=== PATIENT | female | born 1995 | race Caucasian/White ===

== ENCOUNTER 2016-09-04 15:39 | Emergency (ER) | payer OTHER ==
[~2016-09-04] VITALS: Ht 167.6 cm; Wt 69.3 kg
[2016-09-04 15:39] VITALS: TEMP 36.7; Ht 167.6 cm; Wt 69.3 kg
[2016-09-04 16:51] VITALS: O2SAT 96
[2016-09-04 16:56] LABS: BUN/CREATININE RATIO 16.2 (10-20); CALCIUM 8.8 mg/dl (8.5-10.1); CREATININE 0.77 mg/dl (0.60-1.20); POTASSIUM 3.8 mmol/L (3.5-5.1)
[2016-09-04] MEDS ORDERED: LORAZEPAM 2 MG/ML 1 ML VIAL ONE (17:00)
[2016-09-04] MEDS ORDERED: HALOPERIDOL LACTATE 5 MG/ML 1 ML VIAL ONE (17:49)
--- NOTE | 2016-09-04 18:22 | EMERGENCY ROOM VISIT NOTE ---
History Report prepared by Jean Claudeiblalo: Corrine Hills Under the Supervision of: Dr. Alli Bonner D.O. First contact with patient: 15:41 Chief Complaint: ALCOHOL OVERDOSE Stated Complaint: ETOH History of Present Illness The patient is a 21 year old female who presents to the Emergency Room with complaints of alcohol overdose occurring today. The patient reports hitting her face on a door. She does not have any medical problems. HPI is limited secondary to alcohol intoxication. Source of History: patient History Limited By: intoxication Onset: today Position: other (global) Quality: other (alcohol overdose) Review of Systems ROS is limited secondary to alcohol intoxication. Past Medical & Surgical Medical Problems: (1) No Known Active Medical Problems Family History Patient reports no known family medical history. Social History Alcohol Use: occasionally Occupation Status: student Current/Historical Medications No Active Prescriptions or Reported Meds Physical Exam Vital Signs Date Time Temp Pulse Resp B/P Pulse Ox O2 Delivery O2 Flow Rate FiO2 09/04/16 21:02 86 18 93/63 97 Room Air 09/04/16 21:00 87 09/04/16 19:58 84 16 117/75 98 Room Air 09/04/16 19:01 93 18 112/73 95 Room Air 09/04/16 17:54 126 18 134/92 92 Room Air 09/04/16 17:39 144 25 09/04/16 17:29 127/98 09/04/16 17:09 123 17 09/04/16 17:07 64 09/04/16 17:00 150/91 09/04/16 16:58 137 09/04/16 16:51 96 Room Air 09/04/16 16:50 133/73 09/04/16 16:29 /65 09/04/16 16:09 112 11 09/04/16 15:59 113/85 09/04/16 15:47 115/87 09/04/16 15:39 36.7 113 22 115/87 96 Room Air 09/04/16 15:39 96 Room Air Physical Exam CONSTITUTIONAL/VITAL SIGNS: Reviewed / noted above. GENERAL: Non-toxic in appearance. She is tearful. Slightly slurred speech. INTEGUMENTARY: Warm, dry, and [place]. HEAD: Normocephalic. EYES: without scleral icterus or trauma. Bilateral conjunctival injection. ENT/OROPHARYNX: clear and moist. LYMPHADENOPATHY/NECK: Is supple without lymphadenopathy or meningismus. RESPIRATORY: Lungs clear and equal. CARDIOVASCULAR: Regular rate and rhythm. GI/ABDOMEN: Soft and nontender. No organomegaly or pulsatile mass. No rebound or guarding. Normal bowel sounds. EXTREMITIES: Warm and well perfused. BACK: No CVA tenderness. NEUROLOGICAL: Intact without focal deficits. PSYCHIATRIC: normal affect. MUSCULOSKELETAL: Normally developed with good muscle tone. Medical Decision & Procedures Laboratory Results 09/04/16 15:56 Test 09/04/16 15:56 Anion Gap 11.0 mmol/L (3-11) Est Creatinine Clear Calc Drug Dose 109.0 ml/min Estimated GFR () 128.8 Estimated GFR (Non- 111.1 BUN/Creatinine Ratio 16.2 (10-20) Calcium Level 8.8 mg/dl (8.5-10.1) Ethyl Alcohol mg/dL 238.0 mg/dl (0-3) Laboratory results as stated above per my review. Medications Administered Medications (Trade) Dose Ordered Sig/Angelo Route Start Time Stop Time Status Last Admin Dose Admin Lorazepam (Ativan Inj) 2 mg STK-MED ONCE .ROUTE 09/04/16 17:00 09/04/16 17:03 DC 09/04/16 17:09 2 MG Haloperidol Lactate (Haldol Inj) 5 mg STK-MED ONCE .ROUTE 09/04/16 17:49 09/04/16 17:51 DC 09/04/16 17:49 5 MG ED Course 1541: Previous medical records were reviewed. The patient was evaluated in room A11A. A complete history and physical examination was performed. 1630: The patient is screaming and crying. 1700: Ativan Inj 2 mg IM 1749: Haldol Inj 5 mg IM 1828: I reevaluated the patient who is resting comfortably. 2223: On reevaluation, the patient is doing well. I discussed the results and findings with the patient. She verbalized agreement of the treatment plan. She was discharged home. Medical Decision There is no evidence of other toxic ingestions, trauma, anemia, hypoglycemia, head injury or intracranial pathology, meningitis, encephalitis, acute intrathoracic or abdominal pathology or other metabolic condition. This is a 21-year-old female who presents to the ED with a chief complaint of alcohol intoxication. The patient was brought in and denies any medical problems. The patient is not cooperative although she does answer questions appropriately. She is aggressive towards staff and not cooperating. She reports being that she bumped the right side of her face on a door but denies significant injury. The patient is continuously asking for her phone. She was actually given her phone at one point because she stated she wanted to call her mother. She then threw her phone at the security. The patient needed to be restrained because of her agitation. She was restrained initially with soft restraints and then given Ativan and Haldol IM. The patient remained in an aspiration precaution position during his ED stay. The patient remained on the monitor without ectopy. Pulse ox was never shown any evidence of hypoxia. Blood pressure never showed significant hypotension. The mental status improved and the patient was awake alert and oriented and was felt stable for discharge. Impression Primary Impression: Alcohol use with intoxication Scribe Attestation The scribe's documentation has been prepared under my direction and personally reviewed by me in its entirety. I confirm that the note above accurately reflects all work, treatment, procedures, and medical decision making performed by me. Departure Information Dispostion Home / Self-Care Prescriptions No Active Prescriptions or Reported Meds Forms HOME CARE DOCUMENTATION FORM, IMPORTANT VISIT INFORMATION Patient Instructions ED Alcohol Intoxication, [facility]: [employer] Students and Alcohol Related Visits, My [facility] Additional Instructions Avoid alcohol use. Return for any concerns.
[2016-09-04 23:58] VITALS: BP 112/58; PULSE 78; O2SAT 98
== END 2016-09-04 23:59 | disposition home or self-care (01) ==
LOC: C.EDA 15:41
DX: F10.929 Alcohol use, unspecified with intoxication, unspecified (principal)

== ENCOUNTER 2016-12-17 21:28 | Emergency (ER) | payer OTHER ==
[~2016-12-17] VITALS: Ht 165.1 cm; Wt 70.3 kg
[2016-12-17 21:34] VITALS: TEMP 36.8; O2SAT 98; Ht 165.1 cm; Wt 70.3 kg
[2016-12-17] MEDS ORDERED: ONDANSETRON INJ 2 MG/ML 2 ML VIAL IV STA (21:52)
[2016-12-17] MEDS ORDERED: SODIUM CHLORIDE 0.9% 1000ML 1,000 ML IV STA (21:52)
[2016-12-17] MEDS ORDERED: DICYCLOMINE HCL 10 MG/ML 2 ML AMP IM ONE (22:00)
[2016-12-17 22:31] VITALS: O2SAT 96
[2016-12-17 22:33] LABS: BASO % 0.3 %; BASO ABS # 0.02 K/uL (0-0.2); COMPLETE YES; EOS % 0.4 %; HEMATOCRIT 42.1 % (37-47); IG% 0.1 %; LYMPH ABS # 1.92 K/uL (1.2-3.4); MEAN CELL VOLUME 89.4 fL (80-100); MEAN CORPUSCULAR HEMOGLOBIN 30.1 pg (25-34); MEAN CORPUSCULAR HGB CONC 33.7 g/dl (32-36); MEAN PLATELET VOLUME 10.8 fL (7.4-10.4); MONO % 8.8 %; NEUT % 66.4 %; PLATELET COUNT 248 K/uL (130-400); RED BLOOD COUNT 4.71 M/uL (4.2-5.4)
[2016-12-17 22:52] LABS: BUN/CREATININE RATIO 19.6 (10-20); CALCIUM 8.5 mg/dl (8.5-10.1); CREATININE 0.66 mg/dl (0.60-1.20); POTASSIUM 3.8 mmol/L (3.5-5.1)
[2016-12-17 22:52] LABS: URINE APPEARANCE CLEAR (CLEAR); URINE BILIRUBIN NEG (NEG); URINE COLOR YELLOW; URINE NITRITE NEG (NEG); URINE PH 6.5 (4.5-7.5); URINE SPECIFIC GRAVITY 1.026 (1.000-1.030); UROBILINOGEN NEG (NEG); ZZUR CULT IF INDIC CLEAN CATCH NO
[2016-12-17 22:53] LABS: PREG INTERNAL NEGATIVE QC NEG CLEAR BACKGROUND; PREG INTERNAL POSITIVE QC POS CONTROL LINE
[2016-12-17 22:54] LABS: MANUAL MICROSCOPIC REQUIRED? NO; REVIEW REQ? NO
[2016-12-17] MEDS ORDERED: BENTYL HOME PACK 10 MG VIAL PO ONE (23:15)
[2016-12-17] MEDS ORDERED: ONDANSETRON HOME PACK 4MG OD TAB PO ONE (23:15)
[2016-12-17 23:16] VITALS: BP 120/80; PULSE 90
--- NOTE | 2016-12-17 23:21 | EMERGENCY ROOM VISIT NOTE ---
History First contact with patient: 21:38 Chief Complaint: ABDOMINAL PAIN Stated Complaint: NAUSEA, RT SIDE ABDOMINAL PAIN, CHILLS, CRAMPS Nursing Triage Summary: pt reports RLQ abdominal pain X 3 days with nausea. decreased po intake. reports + urinary sx + burning pain and freq. with urination History of Present Illness The patient is a 21 year old female who presents to the Emergency Room with complaints of nausea and abdominal cramping for the past few days that has been intermittent for quite some time. Patient states her mother has a history of IBS. No history of inflammatory bowel disease. No Crohn's. No ulcerative colitis. Patient denies chest pain, dyspnea, fever, chills, vomiting, diarrhea , back pain, vaginal itching or discharge. No other concerns per patient. She is tolerate by mouth fluids and food. Review of Systems See HPI for pertinent positives & negatives. A total of 10 systems reviewed and were otherwise negative. Past Medical/Surgical History Medical Problems: (1) No Known Active Medical Problems Family History Patient reports no known family medical history. Social History Smoking Status: Current Every Day Smoker Alcohol Use: occasionally Drug Use: marijuana Occupation Status: employed Current/Historical Medications No Active Prescriptions or Reported Meds Allergies Coded Allergies: No Known Allergies (Unverified , 12/17/16) Physical Exam Vital Signs Date Time Temp Pulse Resp B/P (MAP) Pulse Ox O2 Delivery O2 Flow Rate FiO2 12/17/16 22:43 73 12/17/16 22:32 72 14 127/78 Room Air 12/17/16 22:31 96 Room Air 12/17/16 21:34 36.8 104 18 135/91 98 Room Air Physical Exam VITALS: Vitals are noted on the nurse's note and reviewed by myself. Vital signs stable. GENERAL: Pleasant female, in no acute distress, nondiaphoretic, well-developed well-nourished. SKIN: The skin was without rashes, erythema, edema, or bruising. There is no tenting of the skin. Capillary reflex less than 2 seconds. HEAD: Normocephalic atraumatic. EARS: External auditory canals clear, tympanic membranes pearly rodriguez without erythema or effusion bilaterally. EYES: Pupils equal round and reactive to light and accommodation. Conjunctivae without injection, sclerae without icterus. Extraocular movements intact. NOSE: Patent, turbinates without inflammation or discharge. MOUTH: Mucous membranes moist. Pharynx without erythema or exudate. Uvula midline. Airway patent. Tongue does not deviate. NECK: Supple without nuchal rigidity. No lymphadenopathy. No thyromegaly. Cervical spine is nontender. No JVD. HEART: Regular rate and rhythm without murmurs gallops or rubs. LUNGS: Clear to auscultation bilaterally without wheezes, rales or rhonchi. No dullness to percussion. No retractions or accessory muscle use. ABDOMEN: Positive bowel sounds x 4. Normal tympanic percussion. Soft, nontender, without masses or organomegaly. [place] sign negative. No guarding or rebound tenderness. No CVA tenderness MUSCULOSKELETAL: No muscle atrophy, erythema, or edema noted. NEURO: Patient was alert and oriented to person place and time. Normal sensation to light and sharp touch. No focal neurological deficits. Medical Decision & Procedures Laboratory Results 12/17/16 22:20 Red Blood Count 4.71, Mean Corpuscular Volume 89.4, Mean Corpuscular Hemoglobin 30.1, Mean Corpuscular Hemoglobin Concent 33.7, Mean Platelet Volume 10.8, Neutrophils (%) (Auto) 66.4, Lymphocytes (%) (Auto) 24.0, Monocytes (%) (Auto) 8.8, Eosinophils (%) (Auto) 0.4, Basophils (%) (Auto) 0.3, Neutrophils # (Auto) 5.32, Lymphocytes # (Auto) 1.92, Monocytes # (Auto) 0.70, Eosinophils # (Auto) 0.03, Basophils # (Auto) 0.02 12/17/16 22:20 Test 12/17/16 22:20 12/17/16 22:35 White Blood Count 8.00 K/uL (4.8-10.8) Red Blood Count 4.71 M/uL (4.2-5.4) Hemoglobin 14.2 g/dL (12.0-16.0) Hematocrit 42.1 % (37-47) Mean Corpuscular Volume 89.4 fL (80-100) Mean Corpuscular Hemoglobin 30.1 pg (25-34) Mean Corpuscular Hemoglobin Concent 33.7 g/dl (32-36) Platelet Count 248 K/uL (130-400) Mean Platelet Volume 10.8 fL (7.4-10.4) Neutrophils (%) (Auto) 66.4 % Lymphocytes (%) (Auto) 24.0 % Monocytes (%) (Auto) 8.8 % Eosinophils (%) (Auto) 0.4 % Basophils (%) (Auto) 0.3 % Neutrophils # (Auto) 5.32 K/uL (1.4-6.5) Lymphocytes # (Auto) 1.92 K/uL (1.2-3.4) Monocytes # (Auto) 0.70 K/uL (0.11-0.59) Eosinophils # (Auto) 0.03 K/uL (0-0.5) Basophils # (Auto) 0.02 K/uL (0-0.2) RDW Standard Deviation 39.4 fL (36.4-46.3) RDW Coefficient of Variation 12.0 % (11.5-14.5) Immature Granulocyte % (Auto) 0.1 % Immature Granulocyte # (Auto) 0.01 K/uL (0.00-0.02) Anion Gap 10.0 mmol/L (3-11) Est Creatinine Clear Calc Drug Dose 133.8 ml/min Estimated GFR () 147.4 Estimated GFR (Non- 127.2 BUN/Creatinine Ratio 19.6 (10-20) Calcium Level 8.5 mg/dl (8.5-10.1) Total Bilirubin 0.5 mg/dl (0.2-1) Direct Bilirubin 0.2 mg/dl (0-0.2) Aspartate Amino Transf (AST/SGOT) 13 U/L (15-37) Alanine Aminotransferase (ALT/SGPT) 22 U/L (12-78) Alkaline Phosphatase 52 U/L (45-117) Total Protein 7.4 gm/dl (6.4-8.2) Albumin 4.3 gm/dl (3.4-5.0) Lipase 109 U/L (73-393) Human Chorionic Gonadotropin, Qual NEG (NEG) Urine Color YELLOW Urine Appearance CLEAR (CLEAR) Urine pH 6.5 (4.5-7.5) Urine Specific [place] 1.026 (1.000-1.030) Urine Protein NEG (NEG) Urine Glucose (UA) NEG (NEG) Urine Ketones NEG (NEG) Urine Occult Blood NEG (NEG) Urine Nitrite NEG (NEG) Urine Bilirubin NEG (NEG) Urine Urobilinogen NEG (NEG) Urine Leukocyte Esterase NEG (NEG) Medications Administered Medications (Trade) Dose Ordered Sig/Angelo Route Start Time Stop Time Status Last Admin Dose Admin Dicyclomine HCl (Bentyl Inj) 20 mg NOW ONCE IM 12/17/16 22:00 12/17/16 22:01 DC 12/17/16 22:23 20 MG Ondansetron HCl (Zofran Inj) 4 mg NOW STAT IV 12/17/16 21:52 12/17/16 21:53 DC 12/17/16 22:26 4 MG Sodium Chloride 1,000 ml @ 999 mls/hr Q1H1M STAT IV 12/17/16 21:52 12/17/16 22:52 DC 12/17/16 22:28 999 MLS/HR ED Course Prior records/ancillary studies reviewed. Triage Nursing notes reviewed. Additional history obtained from friend. The patient's history was concerning for abdominal pain. Differential diagnosis: Etiologies such as appendicitis, diverticulitis, PUD, biliary pathology, UTI, pancreatitis, obstruction, mesenteric ischemia, aortic pathology, infections, inflammatory bowel disease, renal colic, as well as others were entertained. Physical examination findings: As above. ER treatment provided: Bentyl, Zofran, IV fluids On reassessment the patient felt better. Diagnostics interpreted by me: The labs revealed no worrisome leukocytosis or electrolyte abnormality. Negative urine. Negative hCG Exam and history seem consistent with abdominal cramping most likely from IBS. Patient did not have acute abdomen on exam. She tolerated by mouth fluids and food. She felt much better and requested to leave. She is advised to take medications as directed and to follow-up family care in a few days or here in the ER sooner for abdominal pain, fevers, vomiting, worsening signs or symptoms or as needed. By the evaluation outlined above emergent etiologies such as appendicitis, diverticulitis, PUD, biliary pathology, UTI, pancreatitis, obstruction, mesenteric ischemia, aortic pathology, infections, inflammatory bowel disease, renal colic, as well as others were deemed relatively unlikely. The pt informed about the findings as listed above. All questions were answered and pleased with the treatment. Return instructions were outlined and the patient was discharged in stable condition. Outpatient prescription management: Bentyl, Zofran Referral: The patient was referred back to their primary care physician for follow-up in 2 to 3 days for a recheck of the current condition. Case reviewed with my attending Medical Decision As above Impression Primary Impression: Abdominal cramping Additional Impression: Nausea Departure Information Dispostion Home / Self-Care Condition GOOD Prescriptions No Active Prescriptions or Reported Meds Referrals No Doctor, Assigned (PCP) Patient Instructions My [facility] Additional Instructions Bentyl 10 m tablet every 8 hours as needed for abdominal cramping. Zofran 4 m tablet every 6 hours as needed for nausea and/or vomiting. Rest and drink plenty of fluids as tolerated. Continue current medications. Avoid strenuous activities and anything that worsens your pain. Resume normal activities once your symptoms resolve. Return to the ER immediately for abdominal pain, vomiting, fevers, chest pains , difficulty breathing, worsening of your condition, or as needed. Follow up with your primary physician in 2-3 days for a recheck of your current condition. Problem Qualifiers
[2016-12-17] MEDS ORDERED: ONDA4TAB10 SL (23:22)
[2016-12-17] MEDS ORDERED: DICY10CA55 PO (23:22)
== END 2016-12-17 23:39 | disposition home or self-care (01) ==
LOC: C.EDB 21:31 → C.EDC 23:39
DX: R10.9 Unspecified abdominal pain (principal); R11.0 Nausea; F17.200 Nicotine dependence, unspecified, uncomplicated

== ENCOUNTER → 2016-12-17 | Outpatient (CLI) | payer OTHER ==
[~2016-12-17] MED LIST: DICY10CA55 PO; ONDA4TAB10 SL
[2016-12-20 15:43] LABS: CHLAMYDIA TRACH RNA*** NOT DETECTED (NOT DETECTED); GC (NEIS GONORRHOEAE)RNA** NOT DETECTED (NOT DETECTED)
== END | disposition home or self-care (01) ==
LOC: C.LABSPEC 16:17
PROVIDERS: ATTEND Physician Assistant
DX: Z01.419 Encounter for gynecological examination (general) (routine) without abnormal findings (principal)

== ENCOUNTER → 2016-12-17 | Outpatient (CLI) | payer OTHER ==
[2016-12-17 14:48] LABS: PREG INTERNAL NEGATIVE QC NEG CLEAR BACKGROUND; PREG INTERNAL POSITIVE QC POS CONTROL LINE
[2016-12-18 01:03] LABS: RAPID PLASMA REAGIN NONREACTIVE (NONREACT)
== END | disposition home or self-care (01) ==
LOC: C.LAB1850 12:23
PROVIDERS: ATTEND Physician Assistant
DX: Z72.51 High risk heterosexual behavior (principal); Z01.419 Encounter for gynecological examination (general) (routine) without abnormal findings

== ENCOUNTER → 2016-12-17 | Outpatient (CLI) | payer OTHER ==
[2016-12-17 18:22] LABS: URINE APPEARANCE TURBID (CLEAR); URINE BILIRUBIN NEG (NEG); URINE COLOR DK YELLOW; URINE EPITHELIAL CELL AUTO >30 /lpf (0-5); URINE NITRITE NEG (NEG); URINE PH 5.5 (4.5-7.5); URINE SPECIFIC GRAVITY 1.033 (1.000-1.030); UROBILINOGEN NEG (NEG)
[2016-12-17 18:28] LABS: MANUAL MICROSCOPIC REQUIRED? NO; REVIEW REQ? YES
== END | disposition home or self-care (01) ==
LOC: C.LABSPEC 17:25
PROVIDERS: ATTEND Physician Assistant
DX: R39.9 Unspecified symptoms and signs involving the genitourinary system (principal)

== ENCOUNTER 2016-12-22 18:43 | Emergency (ER) | payer OTHER ==
[~2016-12-22] VITALS: Ht 165.1 cm; Wt 69.4 kg
[2016-12-22 18:56] VITALS: TEMP 37; Ht 165.1 cm; Wt 69.4 kg
[2016-12-22] MEDS ORDERED: SODIUM CHLORIDE 0.9% 1000ML 1,000 ML IV STA (20:20)
[2016-12-22] MEDS ORDERED: ONDANSETRON INJ 2 MG/ML 2 ML VIAL IV STA (20:20)
[2016-12-22] MEDS ORDERED: KETOROLAC TROMETHAMINE 30 MG/ML VIAL IV STA (20:20)
--- NOTE | 2016-12-22 20:35 | EMERGENCY ROOM VISIT NOTE ---
History Report prepared by Adeline: Cristo Puente Under the Supervision of: Dr. Cynthia Harden M.D. First contact with patient: 20:12 Chief Complaint: CONSTIPATION Stated Complaint: UNABLE TO GO TO THE BATHROOM, EXCRUCIATING PAIN History of Present Illness The patient is a 21 year old female who presents to the Emergency Room with complaints of constant, worsening, periumbilical, abdominal pain beginning a week ago. She currently rates her discomfort a 5/10 in severity. The patient states that she has not been able to pass stool for the past 8 days. She reports that she was in the ER 5 days ago and was diagnosed with IBS. The patient notes that she was give Zofran and Bentyl for her symptoms, but they are not helping. She states that she is not able to urinate without getting nauseous, and this morning she had projective vomit that consisted of only water. The patient denies fevers, changes in her appetite, and the chance of being . She notes that she is currently on her menstrual cycle, and it is a little glass washer than normal. The patient states that she just moved her and does not have a PCP. Source of History: patient Onset: a week ago Position: abdomen (periumbilical) Symptom Intensity: 5/10 Timing: constant, worsening Associated Symptoms: + nausea, + vomiting, No fevers Note: The patient denies changes in her appetite, and the chance of being . Review of Systems See HPI for pertinent positives & negatives. A total of 10 systems reviewed and were otherwise negative. Past Medical & Surgical Medical Problems: (1) No Known Active Medical Problems Family History Patient reports no known family medical history. Social History Smoking Status: Current Every Day Smoker Alcohol Use: occasionally Drug Use: marijuana Occupation Status: employed Current/Historical Medications Scheduled Dicyclomine Hcl (Bentyl), 10 MG PO Q8 Ondasetron Odt (Zofran Odt), 4 MG SL Q6H Allergies Coded Allergies: No Known Allergies (Unverified , 12/22/16) Physical Exam Vital Signs Date Time Temp Pulse Resp B/P (MAP) Pulse Ox O2 Delivery O2 Flow Rate FiO2 12/22/16 23:23 69 18 123/81 98 Room Air 12/22/16 22:46 98 16 103/64 98 Room Air 12/22/16 21:05 70 16 120/81 Room Air 12/22/16 20:16 98 127/71 98 Room Air 12/22/16 18:56 37.0 93 18 117/84 95 Room Air Physical Exam Vital signs reviewed. General: Well-appearing 21 year old female, in no significant distress. HEENT: No scleral icterus, PERRLA, neck supple. Atraumatic. Cardiovascular: Regular rate and rhythm, no extra sounds. Pulmonary: Clear to auscultation bilaterally, normal work of breathing. Abdomen: Soft, nontender, nondistended, positive bowel sounds. Musculoskeletal: Atraumatic, no peripheral edema. Neurologic: Patient awake alert and oriented x 3 Skin: Warm, dry, no rash Medical Decision & Procedures ER Provider Diagnostic Interpretation: X-ray results as stated below per interpretation by me: Abdomen X-ray series: No pneumothorax, lungs are clear, no free air under the diaphragm, no evidence of obstruction, moderate amounts of fecal retention Laboratory Results 12/22/16 20:55 Red Blood Count 4.62, Mean Corpuscular Volume 90.7, Mean Corpuscular Hemoglobin 31.8, Mean Corpuscular Hemoglobin Concent 35.1, Mean Platelet Volume 11.7, Neutrophils (%) (Auto) 75.2, Lymphocytes (%) (Auto) 17.6, Monocytes (%) (Auto) 6.5, Eosinophils (%) (Auto) 0.3, Basophils (%) (Auto) 0.2, Neutrophils # (Auto) 6.78, Lymphocytes # (Auto) 1.59, Monocytes # (Auto) 0.59, Eosinophils # (Auto) 0.03, Basophils # (Auto) 0.02 12/22/16 20:55 Test 12/22/16 20:55 White Blood Count 9.03 K/uL (4.8-10.8) Red Blood Count 4.62 M/uL (4.2-5.4) Hemoglobin 14.7 g/dL (12.0-16.0) Hematocrit 41.9 % (37-47) Mean Corpuscular Volume 90.7 fL (80-100) Mean Corpuscular Hemoglobin 31.8 pg (25-34) Mean Corpuscular Hemoglobin Concent 35.1 g/dl (32-36) Platelet Count 233 K/uL (130-400) Mean Platelet Volume 11.7 fL (7.4-10.4) Neutrophils (%) (Auto) 75.2 % Lymphocytes (%) (Auto) 17.6 % Monocytes (%) (Auto) 6.5 % Eosinophils (%) (Auto) 0.3 % Basophils (%) (Auto) 0.2 % Neutrophils # (Auto) 6.78 K/uL (1.4-6.5) Lymphocytes # (Auto) 1.59 K/uL (1.2-3.4) Monocytes # (Auto) 0.59 K/uL (0.11-0.59) Eosinophils # (Auto) 0.03 K/uL (0-0.5) Basophils # (Auto) 0.02 K/uL (0-0.2) RDW Standard Deviation 40.9 fL (36.4-46.3) RDW Coefficient of Variation 12.3 % (11.5-14.5) Immature Granulocyte % (Auto) 0.2 % Immature Granulocyte # (Auto) 0.02 K/uL (0.00-0.02) Urine Color DK YELLOW Urine Appearance CLEAR (CLEAR) Urine pH 6.5 (4.5-7.5) Urine Specific [place] 1.023 (1.000-1.030) Urine Protein NEG (NEG) Urine Glucose (UA) NEG (NEG) Urine Ketones NEG (NEG) Urine Occult Blood TRACE (NEG) Urine Nitrite NEG (NEG) Urine Bilirubin NEG (NEG) Urine Urobilinogen NEG (NEG) Urine Leukocyte Esterase NEG (NEG) Urine WBC (Auto) 1-5 /hpf (0-5) Urine RBC (Auto) 0-4 /hpf (0-4) Urine Hyaline Casts (Auto) 1-5 /lpf (0-5) Urine Epithelial Cells (Auto) >30 /lpf (0-5) Urine Bacteria (Auto) NEG (NEG) Anion Gap 8.0 mmol/L (3-11) Est Creatinine Clear Calc Drug Dose 111.1 ml/min Estimated GFR () 124.9 Estimated GFR (Non- 107.8 BUN/Creatinine Ratio 14.7 (10-20) Calcium Level 9.1 mg/dl (8.5-10.1) Total Bilirubin 0.3 mg/dl (0.2-1) Direct Bilirubin 0.1 mg/dl (0-0.2) Aspartate Amino Transf (AST/SGOT) 18 U/L (15-37) Alanine Aminotransferase (ALT/SGPT) 24 U/L (12-78) Alkaline Phosphatase 49 U/L (45-117) Total Protein 7.3 gm/dl (6.4-8.2) Albumin 4.1 gm/dl (3.4-5.0) Human Chorionic Gonadotropin, Qual NEG (NEG) Laboratory results per my review. Medications Administered Medications (Trade) Dose Ordered Sig/Angelo Route Start Time Stop Time Status Last Admin Dose Admin Sodium Chloride 1,000 ml @ 999 mls/hr Q1H1M STAT IV 12/22/16 20:20 12/22/16 21:20 DC 12/22/16 21:05 999 MLS/HR Ketorolac Tromethamine (Toradol Inj) 30 mg NOW STAT IV 12/22/16 20:20 12/22/16 20:23 DC 12/22/16 21:04 30 MG Ondansetron HCl (Zofran Inj) 4 mg NOW STAT IV 12/22/16 20:20 12/22/16 20:23 DC 12/22/16 21:04 4 MG Bisacodyl (Dulcolax Supp) 10 mg NOW STAT OR 12/22/16 23:11 12/22/16 23:12 DC 12/22/16 23:20 10 MG Magnesium Citrate (Citrate Of Magnesia Soln) 150 ml NOW STAT PO 12/22/16 23:11 12/22/16 23:12 DC 12/22/16 23:20 150 ML ED Course 2019: Past medical records reviewed. The patient was evaluated in room B11B. A complete history and physical examination was performed. 2020: Ordered Zofran Inj 4mg IV, Toradol Inj 30mg IV, Sodium Chloride 1000 ml @ 999 mls/hr IV 2311: Ordered Magnesium Citrate 150ml, Bisacodyl 10mg OR 2319: Upon reevaluation, the patient appeared to have improvement of her symptoms. I discussed findings with her. She verbalized agreement of the treatment plan. The patient was discharged home. Medical Decision Differential diagnosis: Etiologies such as appendicitis, diverticulitis, PUD, biliary pathology, UTI, pancreatitis, obstruction, mesenteric ischemia, aortic pathology, infections, inflammatory bowel disease, renal colic, as well as others were entertained. Medication Reconciliation: I attest that I have personally reviewed the patient' s current medication list. Blood Pressure Screening: Patient was found to have normal blood pressure on screening and does not require follow-up. This pt was evaluated and appeared to be in no distress. IV access was obtained and lab work was drawn. Pt was hydrated with NSS, given IV toradol and zofran. Lab work reveals no significant abnl. Abd XR series is negative for SBO or FA. There is increased fecal load c/w pt's complaints. She was given a dulcolax supp pr and mag citrate po. Pt was informed of the findings and agrees with the plan. She will f/u with PCP this week and return to the ED for worsening of symptoms or any medical concerns. Impression Primary Impression: Constipation Scribe Attestation The scribe's documentation has been prepared under my direction and personally reviewed by me in its entirety. I confirm that the note above accurately reflects all work, treatment, procedures, and medical decision making performed by me. Departure Information Dispostion Home / Self-Care Referrals No Doctor, Assigned (PCP) Forms HOME CARE DOCUMENTATION FORM, IMPORTANT VISIT INFORMATION Patient Instructions Constipation, My [facility] Additional Instructions Diagnosis: Constipation Miralax 1 capful every 6 hours until you have a BM, then daily for constipation. Increase the fiber and water in your diet. Follow up with your doctor for reevaluation MYNOR. Return to emergency for worsening of symptoms or any medical concerns.
[2016-12-22 21:43] LABS: BASO % 0.2 %; BASO ABS # 0.02 K/uL (0-0.2); COMPLETE YES; EOS % 0.3 %; HEMATOCRIT 41.9 % (37-47); IG% 0.2 %; LYMPH % 17.6 %; LYMPH ABS # 1.59 K/uL (1.2-3.4); MEAN CELL VOLUME 90.7 fL (80-100); MEAN CORPUSCULAR HEMOGLOBIN 31.8 pg (25-34); MEAN CORPUSCULAR HGB CONC 35.1 g/dl (32-36); MEAN PLATELET VOLUME 11.7 fL (7.4-10.4); MONO % 6.5 %; NEUT % 75.2 %; PLATELET COUNT 233 K/uL (130-400); RED BLOOD COUNT 4.62 M/uL (4.2-5.4); WHITE BLOOD COUNT 9.03 K/uL (4.8-10.8)
[2016-12-22 21:51] LABS: URINE APPEARANCE CLEAR (CLEAR); URINE BILIRUBIN NEG (NEG); URINE COLOR DK YELLOW; URINE EPITHELIAL CELL AUTO >30 /lpf (0-5); URINE NITRITE NEG (NEG); URINE PH 6.5 (4.5-7.5); URINE SPECIFIC GRAVITY 1.023 (1.000-1.030); UROBILINOGEN NEG (NEG); ZZUR CULT IF INDIC CLEAN CATCH NO
[2016-12-22 21:53] LABS: MANUAL MICROSCOPIC REQUIRED? NO; REVIEW REQ? NO
[2016-12-22 22:02] LABS: BUN/CREATININE RATIO 14.7 (10-20); CREATININE 0.79 mg/dl (0.60-1.20); POTASSIUM 3.5 mmol/L (3.5-5.1)
[2016-12-22 22:04] LABS: PREG INTERNAL NEGATIVE QC NEG CLEAR BACKGROUND; PREG INTERNAL POSITIVE QC POS CONTROL LINE
[2016-12-22 22:15] LABS: CALCIUM 9.1 mg/dl (8.5-10.1)
[2016-12-22] MEDS ORDERED: BISACODYL 10 MG SUPP PR STA (23:11)
[2016-12-22] MEDS ORDERED: MAGNESIUM CITRATE 296 ML/BTL PO STA (23:11)
[2016-12-22 23:23] VITALS: BP 123/81; PULSE 69; O2SAT 98
--- NOTE | 2016-12-23 08:26 | DIAGNOSTIC IMAGING REPORT ---
ABDOMEN 2VIEW W/PA CHEST RTN CLINICAL HISTORY: constipation INTERNAL BOWEL SYNDROME COMPARISON STUDY: No previous studies for comparison. FINDINGS: The erect chest reveals no evidence of free air. There is no evidence of focal pulmonary consolidation.] Erect and supine views of the abdomen reveal no abnormally dilated loops of large or small bowel. There are no transition zone to indicate bowel obstruction. There is a left pelvic basin calcification likely representing a phlebolith. IMPRESSION: No evidence of bowel obstruction. No evidence of free air. Electronically signed by: Matthew Galvin M.D. 12/23/2016 8:25 AM Dictated Date/Time: 12/23/2016 8:25 AM
== END 2016-12-22 23:27 | disposition home or self-care (01) ==
LOC: C.EDB 18:44
DX: K59.00 Constipation, unspecified (principal); F17.200 Nicotine dependence, unspecified, uncomplicated